=== PATIENT | male | born 1985 | race Caucasian/White ===

== ENCOUNTER 2025-01-03 06:14 | Day surgery (SDC) | payer OTHER ==
[2024-12-31 10:01] VITALS: BMI 31.0
[2025-01-03] MEDS ORDERED: Thrombin 5000 UNITS/5 ML VIAL ONE (06:35)
[2025-01-03] MEDS ORDERED: Ketamine In 0.9 % NaCl 50 MG/5 ML SYRINGE ONE (06:55)
[2025-01-03] MEDS ORDERED: Rocuronium Bromide 10 MG/ML (10ML VIAL) ONE (06:55)
[2025-01-03] MEDS ORDERED: MINERAL OIL/WHITE PETROLATUM 3.5 GM TUBE ONE (06:55)
[2025-01-03] MEDS ORDERED: CEFAZOLIN 2 GM VIAL ONE (07:09)
[2025-01-03 07:27] LABS: #Basophils 0.06 10x3/uL (0.0-0.2); #Eosinophils 0.08 10x3/uL (0.0-0.7); #Monocytes 0.47 10x3/uL (0.11-0.59); #Neutrophils 4.74 10x3/uL (1.40-6.50); %Basophils 0.9 % (0.0-1.0); %Eosinophils 1.2 % (0.0-10.0); %Lymphocytes 20.8 % (21.0-51.0); %Monocytes 6.9 % (0.0-10.0); %Neutrophils 69.8 % (42.0-75.0); Hematocrit 40.3 % (42.0-52.0); Hemoglobin 13.5 g/dL (14.0-18.0); Mean Corpuscular Hemoglobin 28.5 pg (27.0-31.0); Mean Corpuscular Volume 85.2 fL (78.0-98.0); Platelet Count 211 10x3/uL (130-400); Red Blood Cell (RBC) Count 4.73 mill/uL (4.70-6.10); White Blood Cell (WBC) Count 6.79 10x3/uL (4.8-10.8)
[2025-01-03] MEDS ORDERED: Albuterol HFA (OR) 200 PUFF INH ONE ×2 (07:34→09:10)
[2025-01-03] MEDS ORDERED: PROPOFOL 200 MG/20 ML VIAL ONE (07:34)
[2025-01-03 07:38] LABS: Anion Gap 16 mmol/L (10-20); BUN (Urea Nitrogen) 10 mg/dL (8.9-20.6); Calc. Creatinine Clearance 159 mL/min (70-130); Calcium 9.4 mg/dL (7.8-10.44); Carbon Dioxide 23 mmol/L (22-29); Chloride 105 mmol/L (98-107); Glucose 98 mg/dL (70-105); Potassium 4.0 mmol/L (3.5-5.1); Sodium 140 mmol/L (136-145)
[2025-01-03] MEDS ORDERED: SUGAMMADEX SODIUM 200 MG/2 ML VIAL ONE (08:06)
[2025-01-03] MEDS ORDERED: Ondansetron PF 4 MG/2 ML Vial ONE (08:06)
[2025-01-03] MEDS ORDERED: HYDROmorphone 2 MG/ML VIAL ONE (08:20)
[2025-01-03] MEDS ORDERED: HYDROmorphone 0.5 MG/0.5 ML SYRINGE ONE (10:17)
[2025-01-03] MEDS ORDERED: fentaNYL PF 100 MCG/2 ML SYRINGE ONE (10:17)
[2025-01-03] MEDS ORDERED: HYDROcodone/Acetaminophen 5/325 mg Tablet ONE (11:24)
== END 2025-01-03 12:50 | disposition home or self-care (01) ==
LOC: SDC 06:14
PROVIDERS: ATTEND Neurological Surgery
DX: M54.16 Radiculopathy, lumbar region (principal)
CPT/HCPCS: 80048; 85025; 93005; 93010; C1713; C1889; J1100; J1171; J2250; J2405; J2704; J3010; J3373; J3490